=== PATIENT | female | born 1980 | race Caucasian/White ===

== ENCOUNTER 2022-09-12 11:35 | Outpatient (CLI) | payer BC | END 2022-09-12 11:36 | disposition home or self-care (01) | LOC: CSHMAMMO 11:35 | PROVIDERS: ATTEND Family Medicine | DX: Z12.31 Encounter for screening mammogram for malignant neoplasm of breast (principal) | CPT/HCPCS: 77063; 77067 ==

== ENCOUNTER 2024-08-06 14:19 | Outpatient (CLI) | payer BC | END 2024-08-06 14:20 | disposition home or self-care (01) | LOC: CSHMAMMO 14:19 | PROVIDERS: ATTEND Family Medicine | DX: Z12.31 Encounter for screening mammogram for malignant neoplasm of breast (principal) | CPT/HCPCS: 77063; 77067 ==